=== PATIENT | male | born 1945 | race Caucasian/White ===

== ENCOUNTER → 2024-01-06 14:22 | Outpatient (REF) | payer OTHER, SELFPAY ==
[2024-01-06 14:51] LABS: Urine Albumin Negative (Neg - Trace); Urine Bilirubin Negative (Negative); Urine Character Clear (Clear); Urine Color Yellow; Urine Glucose Negative (Negative); Urine Ketone Negative (Negative); Urine Leukocyte Negative (Negative); Urine Nitrite Negative (Negative); Urine Occult Blood Negative (Negative); Urine Specific Gravity 1.015 (<1.030); Urine Urobilinogen Negative (Neg - 1+)
[2024-01-06 15:51] LABS: PSA, Total - Diagnostic 1.68 ng/ml (0.0-4.0)
== END ==
LOC: REG 14:22
PROVIDERS: ATTENDING PHYSICIAN Specialist; FAMILY PHYSICIAN Family Medicine
DX: R97.20 Elevated prostate specific antigen [PSA] (principal); N40.0 Benign prostatic hyperplasia without lower urinary tract symptoms
CPT/HCPCS: 36415; 81003; 84153

== ENCOUNTER → 2024-06-16 08:34 | Outpatient (REF) | payer OTHER, SELFPAY ==
[2024-06-16 09:39] LABS: % Immature Granulocytes 0.2 % (0-0.5); % Lymphocytes 29.8 % (20.5-51.1); % Monocytes 8.1 % (1.7-9.3); % Neutrophils 59.9 % (42.2-75.2); Absolute Lymphocytes 1.3 10^3/uL (1.2-3.4); Absolute Monocytes 0.3 10^3/uL (0.1-0.6); Absolute Neutrophils 2.5 10^3/uL (1.4-6.5); Hematocrit 39.7 % (39.0-52.0); Hemoglobin 13.5 g/dL (13.0-18.0); Mean Corpuscular Hgb 31.5 pg (27.0-31.0); Mean Corpuscular Volume 92.8 fL (80.0-94.0); Mean Platelet Volume 10.5 fL (7.4-10.4); Nucleated Red Blood Cells % 0 % (-); Platelet Count 127 10^3/uL (130-400); Red Blood Cell Count 4.28 10^6/uL (4.70-6.10); Red Cell Dist. Width 12.7 % (11.5-14.5); White Blood Cell Count 4.2 10^3/uL (4.8-10.8)
[2024-06-16 10:02] LABS: Urine Albumin Negative (Neg - Trace); Urine Bilirubin Negative (Negative); Urine Character Clear (Clear); Urine Color Yellow; Urine Glucose Negative (Negative); Urine Ketone Negative (Negative); Urine Leukocyte Negative (Negative); Urine Nitrite Negative (Negative); Urine Occult Blood Negative (Negative); Urine Specific Gravity 1.015 (<1.030); Urine Urobilinogen Negative (Neg - 1+)
[2024-06-16 11:19] LABS: ALT (SGPT) 25 U/L (0-50); AST (SGOT) 29 U/L (17-59); Albumin 4.1 g/dl (3.5-5.0); Alkaline Phosphatase 60 U/L (38-126); Blood Urea Nitrogen 26 mg/dl (9-20); Calcium 9.3 mg/dl (8.4-10.2); Carbon Dioxide 31 mmol/L (22-30); Chloride 102 mmol/L (98-107); Creatine Phosphokinase 154 U/L (55-170); Glucose 84 mg/dl (70-99); HDL Cholesterol 61 mg/dl; LDL Cholesterol, Calculated 100 mg/dl; Magnesium 2.2 mg/dl (1.6-2.3); Phosphorus 3.3 mg/dl (2.5-4.5); Potassium 4.5 mmol/L (3.5-5.1); Sodium 142 mmol/L (135-145); Total Bilirubin 1.2 mg/dl (0.2-1.3); Total Cholesterol 172 mg/dl (50-199); Total Protein 6.4 g/dl (6.3-8.2); Triglyceride 57 mg/dl (10-149); Uric Acid 4.4 mg/dl (3.5-8.5); Very Low Density Lipoprotein 11 mg/dl (0-30); eGFR > 60.00
[2024-06-16 12:09] LABS: TSH 1.17 uIU/ml (0.47-4.68)
[2024-06-16 12:44] LABS: Folate 18.1 ng/ml (2.76-20); Vitamin B12 923 pg/ml (239-931)
[2024-06-18 23:52] LABS: IgA 128 mg/dl (70-400)
== END ==
LOC: RAD 08:34
PROVIDERS: ATTENDING PHYSICIAN Family Medicine
DX: Z12.5 Encounter for screening for malignant neoplasm of prostate (principal); Z00.00 Encounter for general adult medical examination without abnormal findings; E53.8 Deficiency of other specified B group vitamins; R97.20 Elevated prostate specific antigen [PSA]; E78.5 Hyperlipidemia, unspecified; K90.0 Celiac disease
CPT/HCPCS: 36415; 71046; 80053; 80061; 81003; 82550; 82607; 82746; 82784; 83516; 83735; 84100; 84153; 84443; 84550; 85025; 86231

== ENCOUNTER → 2024-08-16 08:34 | Outpatient (REF) | payer OTHER, SELFPAY ==
[2024-08-16 09:37] LABS: HDL Cholesterol 68 mg/dl; LDL Cholesterol, Calculated 60 mg/dl; Total Cholesterol 143 mg/dl (50-199); Triglyceride 75 mg/dl (10-149); Very Low Density Lipoprotein 15 mg/dl (0-30)
== END ==
LOC: RCS 08:34
PROVIDERS: ATTENDING PHYSICIAN Internal Medicine Cardiovascular Disease; FAMILY PHYSICIAN Family Medicine; REFERRING PHYSICIAN Internal Medicine Hematology & Oncology
DX: R07.89 Other chest pain (principal); I49.3 Ventricular premature depolarization; I45.10 Unspecified right bundle-branch block
CPT/HCPCS: 36415; 80061; 93306

== ENCOUNTER → 2024-09-01 09:46 | Outpatient (REF) | payer OTHER, SELFPAY | LOC: RCS 09:46 | PROVIDERS: ATTENDING PHYSICIAN Internal Medicine Cardiovascular Disease; FAMILY PHYSICIAN Family Medicine; REFERRING PHYSICIAN Internal Medicine Hematology & Oncology | DX: R07.89 Other chest pain (principal) | CPT/HCPCS: 93017; 93350 ==

== ENCOUNTER → 2025-07-06 11:09 | Outpatient (REF) | payer OTHER, SELFPAY ==
[2025-07-06 12:19] LABS: Hematocrit 40.9 % (39.0-52.0); Hemoglobin 13.4 g/dL (13.0-18.0); Mean Corp Hgb Conc. 32.8 g/dL (33.0-37.0); Mean Corpuscular Volume 96.0 fL (80.0-94.0); Nucleated Red Blood Cells % 0 % (-); Platelet Count 122 10^3/uL (130-400); Red Cell Dist. Width 12.9 % (11.5-14.5)
[2025-07-06 13:16] LABS: ALT (SGPT) 32 U/L (0-50); AST (SGOT) 35 U/L (17-59); Albumin 4.1 g/dl (3.5-5.0); Alkaline Phosphatase 67 U/L (38-126); Blood Urea Nitrogen 19 mg/dl (9-20); Calcium 9.3 mg/dl (8.4-10.2); Carbon Dioxide 31 mmol/L (22-30); Chloride 102 mmol/L (98-107); Glucose 88 mg/dl (70-99); HDL Cholesterol 69 mg/dl; Iron 96 ug/dl (49-181); LDL Cholesterol, Calculated 53 mg/dl; Magnesium 2.2 mg/dl (1.6-2.3); Potassium 4.4 mmol/L (3.5-5.1); Sodium 137 mmol/L (135-145); Total Protein 7.0 g/dl (6.3-8.2); Uric Acid 4.8 mg/dl (3.5-8.5); Very Low Density Lipoprotein 10 mg/dl (0-30); eGFR > 60.00
[2025-07-06 13:23] LABS: Urine Character Clear (Clear)
[2025-07-06 13:27] LABS: Total Iron Binding Capacity 250 ug/dl (261-462)
[2025-07-06 13:47] LABS: TSH 0.89 uIU/ml (0.47-4.68)
[2025-07-06 13:51] LABS: Ferritin 94.0 ng/ml (17.9-464.0)
[2025-07-06 14:06] LABS: Vitamin B12 872 pg/ml (239-931)
== END ==
LOC: REG 11:09
PROVIDERS: ATTENDING PHYSICIAN Family Medicine
DX: Z00.00 Encounter for general adult medical examination without abnormal findings (principal); E78.5 Hyperlipidemia, unspecified; E66.3 Overweight; E53.8 Deficiency of other specified B group vitamins; R14.3 Flatulence; R25.2 Cramp and spasm
CPT/HCPCS: 36415; 80053; 80061; 81003; 82607; 82728; 82784; 83516; 83540; 83550; 83735; 84100; 84439; 84443; 84550; 85025; 86231; 86618

== ENCOUNTER → 2025-08-13 11:11 | Outpatient (REF) | payer OTHER, SELFPAY ==
[2025-08-13 12:23] LABS: Hematocrit 40.0 % (39.0-52.0); Hemoglobin 13.0 g/dL (13.0-18.0); Mean Corp Hgb Conc. 32.5 g/dL (33.0-37.0); Mean Corpuscular Volume 94.1 fL (80.0-94.0); Nucleated Red Blood Cells % 0 % (-); Platelet Count 121 10^3/uL (130-400); Red Cell Dist. Width 13.0 % (11.5-14.5)
== END ==
LOC: REG 11:11
PROVIDERS: ATTENDING PHYSICIAN Family Medicine
DX: D69.6 Thrombocytopenia, unspecified (principal)
CPT/HCPCS: 36415; 85025